=== PATIENT | male | born 1950 | race Two or more races ===

== ENCOUNTER 2020-05-29 21:04 | Emergency (ER) | payer OTHER ==
[~2020-05-29] VITALS: Ht 180.3 cm; Wt 90.7 kg
--- NOTE | 2020-05-29 21:15 | NUR ---
PATIENT ARRIVED TO ER C/O WEAKNESS, NO FALLS AND HEADACHES S/P 2ND COVID VACCINE 15 DAYS AGO. PATIENT A/O X4 ON ARRIVAL.
--- NOTE | 2020-05-29 21:40 | NUR ---
PATIENT TAKEN VIA STRETCHER TO CT.
[2020-05-29 21:41] LABS: BASOPHILS # (AUTO) 0.1 /CMM (0.0-0.2); BASOPHILS % (AUTO) 0.6 % (0.0-2.0); EOSINOPHILS % (AUTO) 0.7 % (0.0-6.0); HEMATOCRIT 44 % (39-51); HEMOGLOBIN 14.6 g/dL (13.5-17.5); LYMPHOCYTES # (AUTO) 1.3 /CMM (0.8-4.8); LYMPHOCYTES % (AUTO) 14.2 % (20.0-44.0); MEAN CORPUSCULAR HGB CONC 33 g/dl (31.0-36.0); MEAN CORPUSCULAR VOLUME 91 fL (80-96); NEUTROPHILS # (AUTO) 6.6 /CMM (1.8-8.9); NEUTROPHILS % (AUTO) 73.5 % (43.0-81.0); PLATELET COUNT (AUTO) 208 /CMM (150-450)
--- NOTE | 2020-05-29 21:46 | NUR ---
URINE SAMPLE COLLECTED AND SENT TO LAB.
[2020-05-29 21:50] LABS: CALCIUM, SERUM 9.1 mg/dL (8.5-10.1); CARBON DIOXIDE 23 mmol/L (21-32); CHLORIDE 102 mmol/L (98-107); GLUCOSE 109 mg/dL (74-106); POTASSIUM 3.9 mmol/L (3.5-5.1); SODIUM SERUM 140 mmol/L (136-145); UREA NITROGEN, BLOOD 22 mg/dL (7-18)
[2020-05-29 21:53] LABS: BILIRUBIN,URINE SMALL (NEGATIVE); COLOR,URINE YELLOW (YELLOW); LEUKOCYTE ESTERASE ,URINE Negative (NEGATIVE); NITRITE, URINE Negative (NEGATIVE); PH,URINE 5.5 (5.0-8.0); PROTEIN,URINE 30 mg/dl (NEGATIVE); UGLUCOSE Negative (NEGATIVE); UROBILINOGEN,URINE 0.2 EU/dL (0.2)
[2020-05-29 21:58] LABS: ALANINE AMINOTRANSFERASE 38 U/L (12-78); ALBUMIN 3.5 g/dL (3.4-5.0); ALKALINE PHOSPHATASE 78 U/L (46-116); ASPARTATE AMINOTRANSFERASE 21 U/L (15-37); BILIRUBIN,DIRECT 0.1 mg/dL (0.0-0.2); BILIRUBIN,TOTAL 0.5 mg/dL (0.2-1.0); TOTAL PROTEIN, SERUM 7.5 g/dL (6.4-8.2)
[2020-05-29 22:02] LABS: B-TYPE NATRIURETIC PEPTIDE 112 PG/ML (0-125)
--- NOTE | 2020-05-29 22:18 | NUR ---
COVID SWABBED, SENT TO LAB
[2020-05-29 22:24] LABS: CREATINE KINASE, TOTAL 71 U/L (39-308)
[2020-05-29 22:28] LABS: BACTERIA,URINE Rare /HPF (None Seen); SQUAMOUS EPITHELIAL CELL,UR Few /HPF (None Seen); WBC,URINE NONE SEEN /HPF (0-3)
--- NOTE | 2020-05-29 23:13 | NUR ---
MD NOTIFIED PATIENT'S HIGH BLOOD PRESSURE. 193/106 HR AT 67. VERBAL ORDER OF LABETALOL 10MG IV.
[2020-05-29] MEDS ORDERED: LABETALOL HCL IV 100MG VIAL ONE (23:15)
--- NOTE | 2020-05-29 23:20 | NUR ---
PT MEDICATED ORDERED.
[2020-05-29] MEDS ORDERED: LABETALOL 20 MG/4 ML VIAL IV ONE (23:30)
--- NOTE | 2020-05-29 23:53 | NUR ---
FAX: [phone] SPOKE TO [facility] #
--- NOTE | 2020-05-29 23:57 | NUR ---
MD NOTIFIED PATIENT C/O FRONTAL HEADACHE AND IS REQUESTING PAIN MEDS. LAST BP 150S/90S. MD TO PLACE ORDERS.
[2020-05-29] MEDS ORDERED: MORPHINE SULFATE INJ 4 MG/ML DISP.SYRIN ONE (23:59)
[2020-05-30] MEDS ORDERED: ONDANSETRON HCL/PF - ER 4 MG/2 ML VIAL IV ONE
[2020-05-30] MEDS ORDERED: MORPHINE SULFATE INJ 10 MG/ML DISP.SYRIN IV ONE
[2020-05-30] MEDS ORDERED: ONDANSETRON HCL/PF 4 MG/2 ML VIAL ONE (00:01)
--- NOTE | 2020-05-30 00:21 | NUR ---
ROOM NUMBER [id number] NUMBER FOR REPORT [phone]
--- NOTE | 2020-05-30 00:29 | NUR ---
DR VELEZ IS ACCEPTING . 0130 ETA VIA [facility].
[2020-05-30 00:51] VITALS: BP 146/79
--- NOTE | 2020-05-30 01:20 | NUR ---
REPORT GIVEN TO MAYRA PLAZA AT [facility] FOR NICOLASA.
--- NOTE | 2020-05-30 01:37 | NUR ---
REPORT GIVEN TO EMT FOR TRANSPORT AT THIS TIME.
== END 2020-05-30 01:46 | disposition short-term general hospital (02) ==
LOC: ER 21:07
DX: I62.00 Nontraumatic subdural hemorrhage, unspecified (principal); R53.1 Weakness; E11.9 Type 2 diabetes mellitus without complications; Z95.2 Presence of prosthetic heart valve; R94.31 Abnormal electrocardiogram [ECG] [EKG]; Z20.822 Contact with and (suspected) exposure to COVID-19; R03.0 Elevated blood-pressure reading, without diagnosis of hypertension; R91.8 Other nonspecific abnormal finding of lung field
CPT/HCPCS: 36415; 70450; 71045; 80048; 80076; 81001; 82550; 82962; 83880; 84484; 85025; 87426; 93005; 96374 ×2; 96375; 99291; J2270; J2405; J3490; C9803

== ENCOUNTER 2022-01-10 10:50 | Inpatient (IN) | payer MEDICARE, OTHER ==
[~2022-01-10] VITALS: Ht 177.8 cm; Wt 77.6 kg
--- NOTE | 2022-01-10 10:54 | NUR ---
CODE STROKE CALLED
--- NOTE | 2022-01-10 10:56 | NUR ---
PT TO CT VIA ACLS PROTOCALS.
--- NOTE | 2022-01-10 11:00 | NUR ---
PHLEB AT BEDSIDE FPR BLOOD DRAW.
--- NOTE | 2022-01-10 11:01 | NUR ---
CALLED TE[facility] MED [facility] [phone] WILL BE TEO RUCKER.
[2022-01-10 11:07] LABS: BASOPHILS % (AUTO) 0.2 % (0.0-2.0); EOSINOPHILS % (AUTO) 0.6 % (0.0-6.0); HEMATOCRIT 41 % (39-51); HEMOGLOBIN 13.5 g/dL (13.5-17.5); LYMPHOCYTES # (AUTO) 0.9 K/uL (0.8-4.8); LYMPHOCYTES % (AUTO) 8.3 % (20.0-44.0); MEAN CORPUSCULAR HGB CONC 33 g/dl (31.0-36.0); MEAN CORPUSCULAR VOLUME 88 fL (80-96); MONOCYTES # (AUTO) 0.6 K/uL (0.1-1.30); MONOCYTES % (AUTO) 5.8 % (2.0-12.0); NEUTROPHILS # (AUTO) 8.9 K/uL (1.8-8.9); NEUTROPHILS % (AUTO) 85.1 % (43.0-81.0); PLATELET COUNT (AUTO) 174 K/uL (150-450); RED BLOOD CELL COUNT(AUTO) 4.67 MIL/uL (4.5-6.0); WHITE BLOOD COUNT (AUTO) 10.4 K/uL (4.3-11.0)
[2022-01-10] MEDS ORDERED: CT SWABBABLE VALVE TRANS SET 1 EA INFUS.SET MC ONE (11:08)
[2022-01-10] MEDS ORDERED: IOHEXOL-350 100 ML VIAL IV ONE (11:08)
[2022-01-10] MEDS ORDERED: IV NS 0.9% 250 ML IV ONE (11:08)
[2022-01-10 11:21] LABS: CALCIUM, SERUM 8.7 mg/dL (8.5-10.1); CARBON DIOXIDE 28 mmol/L (21-32); CHLORIDE 103 mmol/L (98-107); GLUCOSE 178 mg/dL (74-106); POTASSIUM 4.3 mmol/L (3.5-5.1); SODIUM SERUM 136 mmol/L (136-145); UREA NITROGEN, BLOOD 25 mg/dL (7-18)
[2022-01-10 11:22] LABS: ALANINE AMINOTRANSFERASE 24 U/L (12-78); ALBUMIN 3.5 g/dL (3.4-5.0); ALKALINE PHOSPHATASE 69 U/L (46-116); ASPARTATE AMINOTRANSFERASE 18 U/L (15-37); BILIRUBIN,DIRECT 0.1 mg/dL (0.0-0.2); BILIRUBIN,TOTAL 0.4 mg/dL (0.2-1.0); TOTAL PROTEIN, SERUM 6.8 g/dL (6.4-8.2)
[2022-01-10] MEDS ORDERED: AMLO-213 PO (11:23)
[2022-01-10] MEDS ORDERED: ROSU40TA23 PO (11:23)
[2022-01-10] MEDS ORDERED: LOSA25TA27 PO (11:23)
[2022-01-10] MEDS ORDERED: LEVE100023 PO (11:23)
[2022-01-10] MEDS ORDERED: TAMS-12 PO (11:23)
[2022-01-10] MEDS ORDERED: DULO30CA52 PO (11:23)
[2022-01-10] MEDS ORDERED: SITA1TAB6 PO (11:23)
[2022-01-10] MEDS ORDERED: SPIR25TA6 PO (11:23)
[2022-01-10] MEDS ORDERED: FAMO20TA8 PO (11:23)
[2022-01-10] MEDS ORDERED: CARV12.52 PO (11:23)
[2022-01-10] MEDS ORDERED: LACO200T2 PO (11:23)
[2022-01-10] MEDS ORDERED: BACL5TAB PO (11:23)
--- NOTE | 2022-01-10 11:25 | NUR ---
PT RETURNED FROM RADIOLOGY
--- NOTE | 2022-01-10 11:52 | NUR ---
COVID SWAB COLLECTED AND SENT TO LAB
--- NOTE | 2022-01-10 14:48 | NUR ---
GOT BED 322-1
[2022-01-10] MEDS ORDERED: INSULIN REGULAR, HUMAN 100 UNIT/ML 3 ML VIAL SQ PRN (15:00)
[2022-01-10] MEDS ORDERED: DEXTROSE 50%-WATER 50 ML DISP.SYRIN IV PRN ×2 (15:00→15:30)
[2022-01-10] MEDS ORDERED: ENOXAPARIN SODIUM 40 MG/0.4 ML DISP.SYRIN SQ SCH ×2 (15:00→15:30)
--- NOTE | 2022-01-10 15:15 | NUR ---
pt transferred to 322-1 via mary kate kate protocol. warm handoff given to MELA Escudero
[2022-01-10] MEDS ORDERED: HOME MED MISCELLANEOUS XX SCH (15:30)
--- NOTE | 2022-01-10 16:54 | NUR ---
SS consult received for code stroke. SW will follow up at a later time.
[2022-01-10] MEDS ORDERED: CARVEDILOL 12.5 MG TABLET PO SCH (17:00)
[2022-01-10] MEDS ORDERED: LEVETIRACETAM (250 MG) 250 MG TABLET PO SCH (17:00)
[2022-01-10] MEDS: CARVEDILOL 12.5 MG TABLET PO SCH (17:25)
[2022-01-10] MEDS: LEVETIRACETAM (250 MG) 250 MG TABLET PO SCH (17:26)
[2022-01-10] MEDS ORDERED: BLOOD SUGAR DIAGNOSTIC 1 EACH STRIP IN SCH (17:30)
[2022-01-10] MEDS: BLOOD SUGAR DIAGNOSTIC 1 EACH STRIP IN SCH ×2 (17:36→21:56)
--- NOTE | 2022-01-10 19:45 | NUR ---
INSIDE SALES TRAINER NOTE RECEIVED PATIENT IN BED; AWAKE, ALERT AND ORIENTED X1. BREATHING EVEN AND NONLABORED. ON ROOM AIR; TOLERATING WELL. NOT IN ANY FORM OF RESPIRATORY DISTRESS. NO C/O PAIN OR DISCOMFORT AT THIS TIME. ON TELEMETRY MONITORING WITH READING OF SR WITH 1ST DEGREE AV BLOCK AND PVC. NEEDS ANTICIPATED. WITH IV ACCESS ON LEFT AC 18g; PATENT, INTACT AND SALINE LOCKED. SAFETY MEASURES IMPLEMENTED: SIDE RAILS UP X 2, BED IN LOWEST LOCKED POSITION, CALL LIGHT AND TABLE WITHIN REACH. WILL CONTINUE TO MONITOR.
[2022-01-10 20:00] VITALS: BP 121/76
[2022-01-10] MEDS ORDERED: LACOSAMIDE 50 MG TABLET PO SCH (21:00)
[2022-01-10 21:12] LABS: BILIRUBIN,URINE NEGATIVE (NEGATIVE); COLOR,URINE AMBER (YELLOW); LEUKOCYTE ESTERASE ,URINE NEGATIVE (NEGATIVE); NITRITE, URINE NEGATIVE (NEGATIVE); PROTEIN,URINE NEGATIVE (NEGATIVE); UGLUCOSE NEGATIVE (NEGATIVE); UROBILINOGEN,URINE 0.2 EU/dL (0.2)
[2022-01-10 21:22] LABS: BACTERIA,URINE Few /HPF (None Seen); RBC,URINE TOO NUMEROUS TO COUN /HPF (0-2); SQUAMOUS EPITHELIAL CELL,UR Few /HPF (None Seen); WBC,URINE 0-2 /HPF (0-3)
[2022-01-10] MEDS: LACOSAMIDE 50 MG TABLET PO SCH (21:44)
[2022-01-10] MEDS: ATORVASTATIN 40 MG TABLET PO SCH (21:45)
--- NOTE | 2022-01-10 21:49 | NUR ---
RN NOTE BLOOD SUGAR CHECKED - 97 MG/DL. NO INSULIN COVERAGE GIVEN PER SLIDING SCALE. OFFERED APPLE JUICE AND BRENT CRACKERS. WILL CONTINUE TO MONITOR.
[2022-01-10 23:56] VITALS: BP 141/84
[2022-01-11] VITALS: BP 141/84
[2022-01-11 03:40] VITALS: BP 150/90
[2022-01-11 04:00] VITALS: BP 150/90
--- NOTE | 2022-01-11 05:26 | NUR ---
RN NOTE BLOOD SUGAR CHECKED - 108 MG/DL. NO INSULIN COVERAGE GIVEN PER SLIDING SCALE. PT KEPT COMFORTABLE IN BED. WILL CONTINUE TO MONITOR.
--- NOTE | 2022-01-11 07:00 | NUR ---
ATHLETIC EQUIPMENT MANAGER NOTE PATIENT IN BED; AWAKE, A/O X1. RESPIRATION EQUAL AND UNLABORED. STABLE ON ROOM AIR. IN NO ACUTE DISTRESS NOTED. NO S/S OF ANY PAIN OR DISCOMFORT NOTED AT THIS TIME. ON TELE MONITORING WITH READING OF SR WITH 1ST DEGREE AV BLOCK. ALL NEEDS ATTENDED. ALL DUE MEDS GIVEN ORDERED. WITH IV ACCESS ON LEFT AC 18g; PATENT, INTACT AND SALINE LOCKED. SAFETY MEASURES MAINTAINED: SIDE RAILS UP X 2, BED IN LOWEST LOCKED POSITION, CALL LIGHT AND TABLE WITHIN REACH. ENDORSED TO AYAAN PLAZA FOR NICOLASA.
--- NOTE | 2022-01-11 07:30 | NUR ---
ROAD PASSENGER FIRER OPENING NOTE RECEIVED PT AWAKE AND RESTING IN BED. PT IS A/O X1, EXPRESSIVE APHASIA. REORIENTED PT NEEDED. PT ON RA, TOLERATING WELL. NO SOB NOTED. NOT IN ANY SIGN OF RESPIRATORY DISTRESS. ON TELE CABIN FURNISHINGS INSTALLER WITH CURRENT READING OF SINUS RHYTHM WITH FIRST DEGREE HEART BLOCK, HR 70. NO C/O OF CARDIAC DISTRESS VOICED OUT NOTED AT THIS TIME. DR. MADSEN AWARE OF CARDIAC READING. IV ACCESS LAC G#18 SALINE LOCK, INTACT, AND PATENT. SAFETY MEASURES IN PLACE: BED IN LOWEST AND LOCKED POSITION, BED ALARM ON, SIDE RAILS UPX2, AND CALL LIGHT WITHIN REACH. WILL CONTINUE TO MONITOR PT.
[2022-01-11] MEDS: BLOOD SUGAR DIAGNOSTIC 1 EACH STRIP IN SCH ×4 (08:11→22:00)
--- NOTE | 2022-01-11 08:43 | NUR ---
WOUND CARE CONSULT: RECEIVED CONSULT FOR PSORIASIS. PT DENIES NEED FOR WOUND CONSULT AND STATES IS BEING TREATED FOR PSORIASIS BY HIS OWN DOCTOR. WILL SEE PRN.
[2022-01-11] MEDS: ASPIRIN 81 MG TAB.CHEW PO SCH (08:44)
[2022-01-11] MEDS: LINAGLIPTIN 5 MG TABLET PO SCH (08:44)
[2022-01-11] MEDS: LEVETIRACETAM (250 MG) 250 MG TABLET PO SCH ×2 (08:44→16:53)
[2022-01-11] MEDS: DULOXETINE HCL 30 MG CAPSULE.DR PO SCH (08:44)
[2022-01-11] MEDS: LOSARTAN POTASSIUM 25 MG TABLET PO SCH (08:45)
[2022-01-11] MEDS: AMLODIPINE BESYLATE 10 MG TABLET PO SCH (08:45)
[2022-01-11] MEDS: LACOSAMIDE 50 MG TABLET PO SCH ×2 (08:46→21:48)
[2022-01-11] MEDS: CARVEDILOL 12.5 MG TABLET PO SCH ×2 (08:46→16:54)
[2022-01-11] MEDS ORDERED: ASPIRIN EC 325 MG TABLET.DR PO SCH ×2 (09:00)
[2022-01-11] MEDS ORDERED: AMLODIPINE BESYLATE 10 MG TABLET PO SCH (09:00)
[2022-01-11] MEDS ORDERED: DULOXETINE HCL 30 MG CAPSULE.DR PO SCH (09:00)
[2022-01-11] MEDS ORDERED: LOSARTAN POTASSIUM 25 MG TABLET PO SCH (09:00)
[2022-01-11 09:23] LABS: CHOLESTEROL 123 mg/dL (<200); HDL CHOLESTEROL 45 mg/dL (40-60); LDL 66 mg/dL (0-99); TRIGLYCERIDES 65 mg/dL (30-150)
--- NOTE | 2022-01-11 11:00 | NUR ---
Inspector Rough Castings Consult SW received a consult for a stroke protocol. Pt. is a 71 y.o. male who was suffered a stroke per EMR. Pt. was alert and oriented x4. SW met with pt. at bedside. Pt. appears unkept. Pt. made normal eye contact and remained calm and cooperative during assessment. Pt. had a cheerful mood and congruent affect. Pt. reports that he is independent with ADLs and is ambulatory without assistance. Pt. stated he lives alone. Pt. stated he is receiving SSI and [employer]. Pt. did not report a hx of substance abuse, no hx of psychiatric dx. Pt. reports no visual or auditory hallucination. SW assessed for suicidal and homicidal ideation in which pt. denied plan, mean, or intent. Pt. reported he had hx of seizure in which the last one was 5 months ago. DC plan: When asked about pt.s plans after being discharged, pt. reports he will be possibly going to his girlfriends house (Elodia Stoll). Pt. also provided another automobiles salesperson, Yesenia Candy ([phone]) who is his friend. Pt. confirmed his home address of [address] [place] [id number]. CARLOS provided pt. with post stroke empowerment resources in which pt. accepted them. CARLOS administered the PHQ9 post stroke depression scale, pt. scored a 2. CARLOS observed that pt. appeared to have difficulty with communicating his thoughts, possibly secondary to stroke therefore, theres no need for a psych consult at this time. CARLOS relayed information to MELA Daniel.
[2022-01-11] MEDS: INSULIN REGULAR, HUMAN 100 UNIT/ML 3 ML VIAL SQ PRN ×2 (12:25→16:55)
--- NOTE | 2022-01-11 19:30 | NUR ---
CLINICAL STAFF RN CLOSING NOTE PT AWAKE AND RESTING IN BED. PT IS A/O X2, EXPRESSIVE APHASIA. REORIENTED PT NEEDED. PT ON RA, TOLERATING WELL. NO SOB NOTED. NOT IN ANY SIGN OF RESPIRATORY DISTRESS. ON TELE MEDICAL COLLECTIONS SPECIALIST WITH CURRENT READING OF SINUS RHYTHM WITH FIRST DEGREE HEART BLOCK, HR 69. NO C/O OF CARDIAC DISTRESS VOICED OUT NOTED AT THIS TIME. IV ACCESS LAC G#18 SALINE LOCK, INTACT, AND PATENT. ALL NEEDS ATTENDED. KEPT CLEAN AND COMFORTABLE. SAFETY MEASURES IN PLACE: BED IN LOWEST AND LOCKED POSITION, BED ALARM ON, SIDE RAILS UPX2, AND CALL LIGHT WITHIN REACH. ENDORSED TO SLURRY MAN NURSE FOR NICOLASA.
--- NOTE | 2022-01-11 19:47 | NUR ---
VASCULAR RADIOLOGIST OPENING NOTES: RECEIVED PATIENT AWAKE IN BED, BED IN LOW POSITION, CALL LIGHTS WITHIN REACH, NO COMPLAIN OF PAIN AND DISCOMFORT AT THIS TIME, ON ROOM AIR SATURATING WELL, PATIENT IS A/OX2-3 AMBULATORY WITH ASSIST, ON TELE MONITOR- SR64 WITH FIRST DEGREE AV BLOCK NO SYMPTOMS WAS OBSERVED, PATIENT KEPT CLEAN AND DRY ALL NEEDS MET WILL CONTINUE TO MONITOR.
[2022-01-11 20:00] VITALS: BP 108/71
[2022-01-11] MEDS: ATORVASTATIN 40 MG TABLET PO SCH (21:47)
--- NOTE | 2022-01-11 22:12 | NUR ---
RN NOTES: BLOOD SUGAR-116 NO INSULIN GIVEN PER SLIDING SCALE, OUT OF PARAMETER
[2022-01-12] VITALS (7 sets, daily range): BP systolic 113–121; BP diastolic 70–81
[2022-01-12 06:45] LABS: CALCIUM, SERUM 8.7 mg/dL (8.5-10.1); CREATININE 0.8 mg/dL (0.6-1.3); POTASSIUM 3.4 mmol/L (3.5-5.1)
--- NOTE | 2022-01-12 06:53 | NUR ---
TELEVISION REPAIRMAN CLOSING NOTES: PATIENT SLEEP IN BED COMFORTABLY, AROUSABLE TO VERBAL STIMULI, BED IN LOW POSITION CALL LIGHTS WITHIN REACH, NO COMPLAIN OF PAIN AND DISCOMFORT AT THIS TIME ON ROOM AIR SATURATING WELL, PATIENT ON TELE MONITOR- SR-[address] DEPRESSION AND BBB NO SYMPTOMS WAS OBSERVED, PATIENT KEPT CLEAN AND DRY ALL NEEDS MET ENDORSE TO INCOMING SHIFT.
--- NOTE | 2022-01-12 07:20 | NUR ---
PAINT DEPARTMENT SUPERVISOR OPENING NOTES: RECEIVED PT IN BED ASLEEP EASILY AWAKEN WITH STIMULI, A/O X 2 AND ABLE TO VERBALIZED NEEDS. NO SOB OR CARDIAC DISTRESS NOTED. PATIENT ON REGIONAL OTR COMPANY DRIVER WITH CURRENT READING SR @64 BPM FIRST AV BLOCK WITH BBB. DENIES ANY PAIN AT THIS TIME. IV ACCESS ON LAC G 18 PATENT, INTACT AND SALINE LOCKED. SAFETY PRECAUTION MAINTAINED: BED LOCKED AND IN LOWEST POSITION, SIDE RAILS UP X 2. CALL LIGHT IN EASY REACH FOR HELP. WILL MONITOR PT ACCORDINGLY.
[2022-01-12] MEDS: BLOOD SUGAR DIAGNOSTIC 1 EACH STRIP IN SCH ×4 (07:33→22:00)
[2022-01-12] MEDS: LEVETIRACETAM (250 MG) 250 MG TABLET PO SCH ×2 (09:09→17:14)
[2022-01-12] MEDS: LACOSAMIDE 50 MG TABLET PO SCH ×2 (09:09→21:28)
[2022-01-12] MEDS: ASPIRIN 81 MG TAB.CHEW PO SCH (09:10)
[2022-01-12] MEDS: METFORMIN 500 MG TABLET PO SCH ×2 (09:10→17:14)
[2022-01-12] MEDS: LINAGLIPTIN 5 MG TABLET PO SCH (09:10)
[2022-01-12] MEDS: DULOXETINE HCL 30 MG CAPSULE.DR PO SCH (09:10)
[2022-01-12] MEDS: LOSARTAN POTASSIUM 25 MG TABLET PO SCH (09:11)
[2022-01-12] MEDS: AMLODIPINE BESYLATE 10 MG TABLET PO SCH (09:11)
[2022-01-12] MEDS: CARVEDILOL 12.5 MG TABLET PO SCH ×2 (09:11→17:15)
[2022-01-12] MEDS ORDERED: POTASSIUM CHLORIDE 20 MEQ TAB.PRT.SR PO ONE (11:00)
[2022-01-12] MEDS: INSULIN REGULAR, HUMAN 100 UNIT/ML 3 ML VIAL SQ PRN (13:01)
--- NOTE | 2022-01-12 18:46 | NUR ---
IT SECURITY SPECIALIST CLOSING NOTES: PT IN BED, AWAKE. A/O X 4, ABLE TO VERBALIZED NEEDS. ABLE TO SWALLOW WITHOUT ANY PROBLEM. NO EPISODES OF SEIZURE NOTED ALL THROUGH OUT MORNING SHIFT. NO SOB OR CARDIAC DISTRESS NOTED. ON PRODUCE CLERK WITH CURRENT READING OF :SINUS RHYTHM 73 BPM. IV ACCESS ON LAC GAUGE 18, PATENT, INTACT AND SALINE LOCKED. PATIENT AMBULATORY AND STABLE. DENIES ANY PAIN AT THIS TIME. KEPT RESTED AND COMFORTABLE. SAFETY PRECAUTION MAINTAINED: BED LOCKED AND IN LOWEST POSITION, SIDE REAILS UP X 2, BED ALARM ON. CALL LIGHT IN EASY REACH FOR HELP. ENDORSED TO NOC SHIFT FOR NICOLASA.
--- NOTE | 2022-01-12 19:55 | NUR ---
THEATER TEACHER OPENING NOTES: RECEIVED PATIENT AWAKE IN BED, BED IN LOW POSITION CALL LIGHTS WITHIN REACH, NO COMPLAIN OF PAIN AND DISCOMFORT AT THIS TIME, ON ROOM AIR SATURATING WELL, NO SOB WAS OBSERVED, PATIENT WITH IV LINE AT LAC#18SL, ON TELE MONITOR- SR-75 WITH 5TH DEGREE AV BLOCK, NO SYMPTOMS WAS OBSERVED, PATIENT KEPT CLEAN AND DRY ALL NEEDS MET WILL CONTINUE TO MONITOR.
[2022-01-12] MEDS: ATORVASTATIN 40 MG TABLET PO SCH (21:28)
--- NOTE | 2022-01-12 22:21 | NUR ---
RN NOTES; BLOOD SUGAR-111- NO INSULIN GIVEN /OUT OF PARAMETER
[2022-01-13] VITALS: BP 134/78
[2022-01-13 04:00] VITALS: BP 126/78
[2022-01-13 06:33] LABS: CALCIUM, SERUM 8.7 mg/dL (8.5-10.1); CREATININE 0.8 mg/dL (0.6-1.3); POTASSIUM 3.8 mmol/L (3.5-5.1)
[2022-01-13] MEDS: INSULIN REGULAR, HUMAN 100 UNIT/ML 3 ML VIAL SQ PRN (06:36)
--- NOTE | 2022-01-13 06:40 | NUR ---
RN NOTES: BLOOD SUGAR-132/ 2 UNITS INSULIN GIVEN PER SLIDING SCALE
--- NOTE | 2022-01-13 06:52 | NUR ---
BUSINESS SOLUTIONS ARCHITECT CLOSING NOTES: PATIENT SLEE P IN BED COMFORTABLY, AROUSABLE TO VERBAL STIMULI, BED IN LOW POSITION, CALL LIGHTS WITHIN REACH, NO COMPLAIN OF PAIN AND DISCOMFORT AT THIS TIME, ON ROOM AIR SATURATING WELL, NO SOB WAS OBSERVED, PATIENT IS A/0X2-3 AMBULATORY WITH ASSISTANCE, NO SEIZURE EPISODE WAS OBSERVED, ON TELE MONITOR- SR-66 WITH 5 DEG. AV BLOCK WITH PVC NO SYMPTOMS WAS OBSERVED,KEPT CLEAN AND DRY ALL NEEDS MET ENDORSE TO INCOMING SHIFT.
[2022-01-13] MEDS: BLOOD SUGAR DIAGNOSTIC 1 EACH STRIP IN SCH ×4 (07:01→22:00)
--- NOTE | 2022-01-13 07:32 | NUR ---
RN OPENING NOTE PATIENT IS SLEEPING BUT EASILY BEING AROUSED. AO X 3. PATIENT HAS SOME DEGREE OF APHASIA. PATIENT IS ON RA, NO S/S OF DISTRESS. PT IS CALM, NO SIGNS OF HAVING PAIN. IV ACCESS @ LAC. IV IS PATENT. VS Q 4 HOURS. CALL LIGHT WITHIN REACH, SIDE RAILS UP X 2, BED IS IN LOWEST POSITION. BED ALARM IS ON.
[2022-01-13] MEDS: LINAGLIPTIN 5 MG TABLET PO SCH (08:48)
[2022-01-13] MEDS: LACOSAMIDE 50 MG TABLET PO SCH ×2 (08:52→21:41)
[2022-01-13] MEDS: METFORMIN 500 MG TABLET PO SCH ×2 (08:53→17:09)
[2022-01-13] MEDS: ASPIRIN 81 MG TAB.CHEW PO SCH (08:53)
[2022-01-13] MEDS: LOSARTAN POTASSIUM 25 MG TABLET PO SCH (08:54)
[2022-01-13] MEDS: LEVETIRACETAM (250 MG) 250 MG TABLET PO SCH ×2 (08:54→17:08)
[2022-01-13] MEDS: DULOXETINE HCL 30 MG CAPSULE.DR PO SCH (08:54)
[2022-01-13] MEDS: AMLODIPINE BESYLATE 10 MG TABLET PO SCH (08:55)
[2022-01-13] MEDS: CARVEDILOL 12.5 MG TABLET PO SCH ×2 (08:55→17:09)
--- NOTE | 2022-01-13 10:20 | NUR ---
MS RN NOTE PATENT SEEN BY HOSPITALIST AIRAM
--- NOTE | 2022-01-13 11:00 | NUR ---
MS RN NOTE PATIENT WAS SEEN BY KALI ALEGRIA AND KALI WEST.
[2022-01-13] MEDS ORDERED: JANUMET XX SCH (15:45)
[2022-01-13 16:00] VITALS: BP 121/78
--- NOTE | 2022-01-13 18:11 | NUR ---
MS RN CLOSING NOTE PATIENT IN BED ALERT AND ORIENTED X 4. PATIENT IS ABLE TO MAKE A CONVERSATION WITH SOME DELAYED VERBALLY RESPONSE. PATIENT IS ON ROOM AIR; NO SIGNS OF RESPIRATORY DISTRESS. NO COMPLAIN OF PAIN OR DISCOMFORT. PATIENT ABLE TO MAKE NEEDS KNOWN. SAFETY MEASURES ENSURED WITH BED IN LOWEST LOCKED POSITION, SIDERAILS RAISED X2, BED ALARM ON AND CALL LIGHT WITHIN REACH AT ALL TIMES. WILL ENDORSE TO NEXT SHIFT FOR CONTINUITY OF CARE.
--- NOTE | 2022-01-13 19:52 | NUR ---
MS RN OPENING NOTES: RECEIVED PATIENT SLEEP IN BED COMFORTABLY, AROUSABLE TO VERBAL STIMULI, BED IN LOW POSITION CALL LIGHTS WITHIN REACH, NO COMPLAIN OF PAIN AND DISCOMFORT AT THIS TIME, ON ROOM AIR SATURATING WELL, A/OX3-4 AMBULATORY WITH SUPERVISION, IV LINE AT LAC#18 SL, PATIENT KEPT CLEAN AND DRY ALL NEEDS MET WILL CONTINUE TO MONITOR
[2022-01-13 20:00] VITALS: BP 119/79
[2022-01-13] MEDS: ATORVASTATIN 40 MG TABLET PO SCH (21:41)
--- NOTE | 2022-01-13 22:39 | NUR ---
RN NOTES: BLOOD SUGAR- 101/ NO INSULIN GIVEN PER SLIDING SCALE/ OUT OF PARAMETER
--- NOTE | 2022-01-14 06:22 | NUR ---
RN NOTES: BLOOD SUGAR-110 NO INSULIN GIVEN PER SLIDING SCALE
--- NOTE | 2022-01-14 06:23 | NUR ---
AWARD CLERK CLOSING NOTES: PATIENT SLEEP IN BED COMFORTABLY, АЛЕКСАНДР IN LOW POSITION CALL LIGHTS WITHIN REACH, NO COMPLAIN OF PAIN AND DISCOMFORT AT THIS TIME, ON ROOM AIR SATURATING WELL, PATIENT IS A/OX2-3 ABLE TO MAKE NEEDS KNOW,WEEKLY SKIN ASSESSMENT DONE AND DOCUMENT PATIENT KEPT CLEAN AND DRY ALL NEEDS MET ENDORSE TO INCOMING SHIFT.
[2022-01-14] MEDS: BLOOD SUGAR DIAGNOSTIC 1 EACH STRIP IN SCH ×2 (07:49→12:04)
[2022-01-14 08:00] VITALS: BP 129/75
--- NOTE | 2022-01-14 08:00 | NUR ---
MS RN OPENING NOTES: PATIENT IS SLEEPING IN BED CALMLY WITH ROOM AIR. NO COMPLAIN OF CHEST PAIN NOR DISCOMFORT. PATIENT IS EASILY AROUSED BY VERBAL STIMULI AND TOUCH. BED IN LOWEST POSITION, CALL LIGHTS WITHIN REACH. A/OX3-4 AMBULATORY WITH SUPERVISION, IV LINE AT LAC#18 SL. PATIENT KEPT CLEAN AND DRY, ALL NEEDS MET WILL CONTINUE TO MONITOR
[2022-01-14] MEDS: ASPIRIN 81 MG TAB.CHEW PO SCH (10:06)
[2022-01-14] MEDS: METFORMIN 500 MG TABLET PO SCH ×2 (10:06→16:16)
[2022-01-14] MEDS: AMLODIPINE BESYLATE 10 MG TABLET PO SCH (10:07)
[2022-01-14] MEDS: DULOXETINE HCL 30 MG CAPSULE.DR PO SCH (10:07)
[2022-01-14] MEDS: LEVETIRACETAM (250 MG) 250 MG TABLET PO SCH ×2 (10:07→16:17)
[2022-01-14] MEDS: LOSARTAN POTASSIUM 25 MG TABLET PO SCH (10:07)
[2022-01-14] MEDS: CARVEDILOL 12.5 MG TABLET PO SCH ×2 (10:08→16:16)
[2022-01-14] MEDS: LACOSAMIDE 50 MG TABLET PO SCH (10:16)
[2022-01-14] MEDS: LINAGLIPTIN 5 MG TABLET PO SCH (10:16)
[2022-01-14] MEDS ORDERED: ATOR40TA PO (12:23)
[2022-01-14] MEDS ORDERED: ASPI-1169 PO (12:23)
--- NOTE | 2022-01-14 14:25 | NUR ---
MS RN NOTES PER MD ORDER, PATIENT IS IN MEDICAL STABLE CONDITION AND BEING DISCHARGED. PATIENT WILL BE PICKED UP BY HIS GIRLFRIEND (POA). PATIENT RECEIVED HOSPITAL DISCHARGE INSTRUCTION. HOME MEDICATION LIST AND PATIENT PREFERRED PHARMACY INFORMATION HAVE BEEN PROVIDED TO THE PATIENT. PATIENT WILL BE DISCHARGED HOME , FOLLOWED BY HOME HEALTH SERVICES AND PCP APPOINTMENT.
[2022-01-14 16:16] VITALS: BP 117/68
--- NOTE | 2022-01-14 16:35 | NUR ---
PATIENT IS DISCHARGED AND LEFT WITH HIS GIRLFRIEND IN THEIR PRIVATE CAR. ID BANDS ARE REMOVED. IV ACCESS HAS BEEN REMOVED, COVERED WITH 2X2 DRY GAUZE AND SECURED BY TAPES
== END 2022-01-14 16:56 | disposition home or self-care (01) | DRG 66 ==
LOC: ER 11:00 → TELE 15:32 → MED 01-13 10:14
PROVIDERS: ADMIT Nurse Practitioner Acute Care; ATTEND Nurse Practitioner Acute Care
DX: I63.9 Cerebral infarction, unspecified (principal); G40.909 Epilepsy, unspecified, not intractable, without status epilepticus; R29.703 NIHSS score 3; Z20.822 Contact with and (suspected) exposure to COVID-19; I10 Essential (primary) hypertension; Z86.73 Personal history of transient ischemic attack (TIA), and cerebral infarction without residual deficits; E11.9 Type 2 diabetes mellitus without complications; Z95.2 Presence of prosthetic heart valve; Z79.84 Long term (current) use of oral hypoglycemic drugs; Z79.899 Other long term (current) drug therapy; R47.01 Aphasia; R27.8 Other lack of coordination; R47.1 Dysarthria and anarthria; L40.9 Psoriasis, unspecified; N40.0 Benign prostatic hyperplasia without lower urinary tract symptoms; Z91.81 History of falling; E78.5 Hyperlipidemia, unspecified; R79.89 Other specified abnormal findings of blood chemistry; G93.89 Other specified disorders of brain; R53.1 Weakness
CPT/HCPCS: 36415; 70450-TC; 70496-TC; 70498-TC; 70551-TC; 71045-TC; 80048-TC; 80061-TC; 80076-TC; 81001; 82962-TC; 84443-TC; 84484-TC; 85025-TC; 85652-TC; 85730-TC; 87081-TC; 92526; 92611-TC; 93307-TC; 93880-TC; 97112-TC; 97116-TC; 97530-TC; C9803; G0378; J1650; J1815; J7050; Q9967

== ENCOUNTER 2023-10-20 11:07 | Inpatient (IN) | payer MEDICARE, OTHER ==
[~2023-10-20] VITALS: Ht 180.3 cm; Wt 86.7 kg
[~2023-10-20 11:07] MED LIST: AMLO-213 PO; ASPI-1169 PO; ATOR40TA PO; BACL5TAB PO; CARV12.52 PO; DULO30CA52 PO; FAMO20TA8 PO; LACO200T2 PO; LEVE100023 PO; LOSA25TA27 PO; ROSU40TA23 PO; SITA1TAB6 PO; SPIR25TA6 PO
[2023-10-20 11:37] LABS: BASOPHILS % (AUTO) 0.4 % (0.0-2.0); EOSINOPHILS % (AUTO) 0.1 % (0.0-6.0); HEMATOCRIT 38 % (39-51); HEMOGLOBIN 12.6 g/dL (13.5-17.5); LYMPHOCYTES # (AUTO) 0.4 K/uL (0.8-4.8); LYMPHOCYTES % (AUTO) 4.5 % (20.0-44.0); MEAN CORPUSCULAR HEMOGLOBIN 29 PG (26.0-33.0); MEAN CORPUSCULAR HGB CONC 33 g/dl (31.0-36.0); MEAN CORPUSCULAR VOLUME 89 fL (80-96); MONOCYTES # (AUTO) 0.7 K/uL (0.1-1.30); MONOCYTES % (AUTO) 7.5 % (2.0-12.0); NEUTROPHILS # (AUTO) 7.9 K/uL (1.8-8.9); NEUTROPHILS % (AUTO) 87.5 % (43.0-81.0); PLATELET COUNT (AUTO) 180 K/uL (150-450); RED CELL DISTRIBUTION WIDTH 13.4 % (11.5-15.0)
[2023-10-20] MEDS ORDERED: IOHEXOL-350 100 ML VIAL IV ONE (11:39)
[2023-10-20] MEDS ORDERED: IV NS 0.9% 250 ML IV ONE (11:40)
[2023-10-20] MEDS ORDERED: CT SWABBABLE VALVE TRANS SET 1 EA INFUS.SET MC ONE (11:40)
[2023-10-20 11:46] LABS: CALCIUM, SERUM 8.8 mg/dL (8.5-10.1); CARBON DIOXIDE 24 mmol/L (21-32); CHLORIDE 95 mmol/L (98-107); CREATININE 1.1 mg/dL (0.6-1.3); GLUCOSE 123 mg/dL (74-106); POTASSIUM 4.1 mmol/L (3.5-5.1); SODIUM SERUM 128 mmol/L (136-145); UREA NITROGEN, BLOOD 19 mg/dL (7-18)
[2023-10-20 11:52] LABS: ALANINE AMINOTRANSFERASE 49 U/L (12-78); ALBUMIN 2.7 g/dL (3.4-5.0); ALKALINE PHOSPHATASE 91 U/L (46-116); ASPARTATE AMINOTRANSFERASE 40 U/L (15-37); BILIRUBIN,DIRECT 0.2 mg/dL (0.0-0.2); BILIRUBIN,TOTAL 0.5 mg/dL (0.2-1.0); TOTAL PROTEIN, SERUM 7.1 g/dL (6.4-8.2)
[2023-10-20] MEDS ORDERED: ASPI-1169 PO (11:54)
[2023-10-20] MEDS ORDERED: ATOR40TA PO (11:54)
[2023-10-20 11:56] LABS: INR 0.96 (0.91-1.10); PARTIAL THROMBOPLASTIN TIME 33.4 SEC (24.3-34.3); PROTHROMBIN TIME 9.9 SECS (9.2-11.1)
[2023-10-20 12:11] LABS: CHOLESTEROL 157 mg/dL (<200); HDL CHOLESTEROL 43 mg/dL (40-60); LDL 87 mg/dL (0-99); TRIGLYCERIDES 97 mg/dL (30-150)
[2023-10-20 13:35] LABS: APPEARANCE,URINE Clear (CLEAR); BILIRUBIN,URINE Negative (NEGATIVE); BLOOD, URINE Moderate Ery/uL (NEGATIVE); COLOR,URINE YELLOW (YELLOW); KETONES,URINE 40 mg/dL (NEGATIVE); LEUKOCYTE ESTERASE ,URINE Trace (NEGATIVE); NITRITE, URINE Positive (NEGATIVE); PROTEIN,URINE 100 mg/dl (NEGATIVE); UGLUCOSE Negative (NEGATIVE); UROBILINOGEN,URINE 0.2 EU/dL (0.2)
[2023-10-20 13:53] LABS: ADD URINE CULTURE YES; BACTERIA,URINE Few /HPF (None Seen); SQUAMOUS EPITHELIAL CELL,UR Rare /HPF (None Seen)
[2023-10-20] MEDS: CEFTRIAXONE 1GM BAG (ER ONLY) 1 GM/50 ML PIGGYBACK IV ONE (15:00)
[2023-10-20] MEDS ORDERED: CEFTRIAXONE 1GM BAG (ER ONLY) 50 ML IV ONE (15:06)
[2023-10-20 17:00] VITALS: BP 159/92; TEMP 98.4; O2SAT 99
[2023-10-20 17:25] VITALS: BP 159/92; TEMP 98.4; O2SAT 99
[2023-10-20] MEDS ORDERED: ACETAMINOPHEN 325 MG TABLET PO PRN (19:30)
[2023-10-20] MEDS ORDERED: ONDANSETRON HCL/PF 4 MG/2 ML VIAL IVP PRN (19:30)
[2023-10-20] MEDS ORDERED: Z GUARD REMEDY 4 OZ OINT TP PRN (19:30)
[2023-10-20 20:00] VITALS: BP 134/73; TEMP 99.5; O2SAT 96
[2023-10-20 20:29] LABS: THYROID STIMULATING HORMONE 1.2 uIU/mL (0.358-3.74)
[2023-10-20] MEDS: LEVETIRACETAM (250 MG) 250 MG TABLET PO SCH (20:55)
[2023-10-20] MEDS: LACOSAMIDE 50 MG TABLET PO SCH (20:56)
[2023-10-20] MEDS: BACLOFEN (10 MG) 10 MG TABLET PO SCH (20:59)
[2023-10-20] MEDS: CYANOCOBALAMIN 1,000 MCG/ML VIAL IM ONE (21:00)
[2023-10-20] MEDS: ENOXAPARIN SODIUM 40 MG/0.4 ML DISP.SYRIN SQ SCH (21:01)
[2023-10-20] MEDS ORDERED: ZOLPIDEM TARTRATE 5 MG TABLET PO PRN (22:30)
[2023-10-20] MEDS: IV NS 0.9% 1,000 ML IV PRN (22:30)
[2023-10-20] MEDS: PHENYTOIN EXTENDED RELEASE 100 MG CAPSULE PO SCH (22:55)
[2023-10-21] VITALS (7 sets, daily range): BP systolic 94–142; BP diastolic 61–86; TEMP 97.9–98.6; O2SAT 94–100
[2023-10-21 06:34] LABS: BASOPHILS % (AUTO) 0.3 % (0.0-2.0); EOSINOPHILS % (AUTO) 0.2 % (0.0-6.0); HEMATOCRIT 38 % (39-51); HEMOGLOBIN 12.5 g/dL (13.5-17.5); LYMPHOCYTES # (AUTO) 0.5 K/uL (0.8-4.8); LYMPHOCYTES % (AUTO) 6.5 % (20.0-44.0); MEAN CORPUSCULAR HEMOGLOBIN 30 PG (26.0-33.0); MEAN CORPUSCULAR HGB CONC 33 g/dl (31.0-36.0); MEAN CORPUSCULAR VOLUME 89 fL (80-96); MONOCYTES # (AUTO) 1.2 K/uL (0.1-1.30); NEUTROPHILS # (AUTO) 6.1 K/uL (1.8-8.9); PLATELET COUNT (AUTO) 179 K/uL (150-450); RED BLOOD CELL COUNT(AUTO) 4.22 MIL/uL (4.5-6.0); RED CELL DISTRIBUTION WIDTH 13.4 % (11.5-15.0); WHITE BLOOD COUNT (AUTO) 7.9 K/uL (4.3-11.0)
[2023-10-21 08:23] LABS: CALCIUM, SERUM 8.8 mg/dL (8.5-10.1); CARBON DIOXIDE 19 mmol/L (21-32); CHLORIDE 99 mmol/L (98-107); CREATININE 0.8 mg/dL (0.6-1.3); GLUCOSE 110 mg/dL (74-106); PHOSPHORUS 3.5 mg/dL (2.5-4.9); POTASSIUM 3.7 mmol/L (3.5-5.1); SODIUM SERUM 134 mmol/L (136-145); UREA NITROGEN, BLOOD 13 mg/dL (7-18)
[2023-10-21] MEDS: ASPIRIN 81 MG TAB.CHEW PO SCH (08:34)
[2023-10-21] MEDS: DULOXETINE HCL 30 MG CAPSULE.DR PO SCH (08:34)
[2023-10-21] MEDS: SPIRONOLACTONE 25 MG TABLET PO SCH (08:35)
[2023-10-21] MEDS: LINAGLIPTIN 5 MG TABLET PO SCH (08:35)
[2023-10-21] MEDS: AMLODIPINE BESYLATE 10 MG TABLET PO SCH (08:35)
[2023-10-21] MEDS: ATORVASTATIN 40 MG TABLET PO SCH (08:35)
[2023-10-21] MEDS: CARVEDILOL 12.5 MG TABLET PO SCH (08:36)
[2023-10-21] MEDS: LOSARTAN POTASSIUM 25 MG TABLET PO SCH (08:36)
[2023-10-21 16:40] LABS: URINE SODIUM, RANDOM 21 mmol/l (40-220)
[2023-10-22 00:53] VITALS: BP 107/72; TEMP 98.2; O2SAT 99
[2023-10-22 04:22] VITALS: BP 144/82; TEMP 98.2; O2SAT 96
[2023-10-22 04:26] VITALS: BP 144/82; TEMP 98.2; O2SAT 96
[2023-10-22 08:24] LABS: CALCIUM, SERUM 9.2 mg/dL (8.5-10.1); CARBON DIOXIDE 20 mmol/L (21-32); CHLORIDE 102 mmol/L (98-107); CREATININE 0.7 mg/dL (0.6-1.3); GLUCOSE 135 mg/dL (74-106); PHOSPHORUS 3.4 mg/dL (2.5-4.9); POTASSIUM 3.9 mmol/L (3.5-5.1); SODIUM SERUM 138 mmol/L (136-145); UREA NITROGEN, BLOOD 14 mg/dL (7-18)
[2023-10-22 08:52] LABS: URIC ACID 6.6 mg/dL (2.6-7.2)
[2023-10-22 09:30] VITALS: BP 133/81; TEMP 98.1; O2SAT 96
[2023-10-22] MEDS ORDERED: PHEN100C4 PO (11:07)
[2023-10-22 12:00] VITALS: BP 104/83; TEMP 97.7; O2SAT 97
[2023-10-22] MEDS ORDERED: METFORMIN 500 MG TABLET PO SCH (17:00)
[2023-10-22 21:45] LABS: OSMOLALITY,URINE 285 mOS/kg (340-1090)
== END 2023-10-22 15:25 | disposition home health service (06) | DRG 74 ==
LOC: ER 11:07 → TELE 13:04 → MED 10-22 14:05
PROVIDERS: ADMIT Nurse Practitioner Acute Care; ATTEND Internal Medicine
DX: E11.40 Type 2 diabetes mellitus with diabetic neuropathy, unspecified (principal); I69.351 Hemiplegia and hemiparesis following cerebral infarction affecting right dominant side; E87.1 Hypo-osmolality and hyponatremia; N17.9 Acute kidney failure, unspecified; I69.320 Aphasia following cerebral infarction; R20.0 Anesthesia of skin; G40.909 Epilepsy, unspecified, not intractable, without status epilepticus; Z20.822 Contact with and (suspected) exposure to COVID-19; Z95.2 Presence of prosthetic heart valve; Z98.890 Other specified postprocedural states; R29.6 Repeated falls; N40.0 Benign prostatic hyperplasia without lower urinary tract symptoms; M89.8X9 Other specified disorders of bone, unspecified site; I25.10 Atherosclerotic heart disease of native coronary artery without angina pectoris; E86.9 Volume depletion, unspecified; Z88.8 Allergy status to other drugs, medicaments and biological substances; Z79.82 Long term (current) use of aspirin; Z79.899 Other long term (current) drug therapy; Z79.84 Long term (current) use of oral hypoglycemic drugs; Z91.81 History of falling; D64.9 Anemia, unspecified; E78.5 Hyperlipidemia, unspecified; I10 Essential (primary) hypertension
CPT/HCPCS: 36415; 70496-TC; 70498-TC; 70551-TC; 71045-TC; 80048-TC; 80061-TC; 80076-TC; 81001; 82607-TC; 83540-TC; 83735-TC; 83935-TC; 84100-TC; 84300-TC; 84443-TC; 84484-TC; 84550-TC; 85025-TC; 85652-TC; 85730-TC; 87040-TC; 87086-TC; 92507-TC; 92521; 92526; 92611-TC; 97110-TC; 97116-TC; 97530-TC; 97535-TC; A4223; G0378; J0696; J1650; J3420; J7030; J7050; Q9967

== ENCOUNTER 2024-05-24 14:39 | Emergency (ER) | payer MEDICARE, OTHER ==
[~2024-05-24] VITALS: Ht 180.3 cm; Wt 81.6 kg
[~2024-05-24 14:39] MED LIST changes: -FAMO20TA8 PO; +PHEN100C4 PO; -ROSU40TA23 PO
[2024-05-24] MEDS ORDERED: LIDOCAINE 1%-EPI 1:100,000 20 ML VIAL ONE (15:21)
[2024-05-24] MEDS ORDERED: TDAP [DIPH/PERTUSSIS/TET] 0.5 ML VIAL IM ONE (15:35)
[2024-05-24] MEDS: TDAP [DIPH/PERTUSSIS/TET] 0.5 ML VIAL IM ONE (15:38)
[2024-05-24] MEDS: LIDOCAINE 1%-EPI 1:100,000 20 ML VIAL TP ONE (17:30)
[2024-05-24 18:21] VITALS: BP 150/80; TEMP 98.2; O2SAT 98
== END 2024-05-24 18:21 | disposition home or self-care (01) ==
LOC: ER 14:39
DX: S01.81XA Laceration without foreign body of other part of head, initial encounter (principal); S61.411A Laceration without foreign body of right hand, initial encounter; S01.21XA Laceration without foreign body of nose, initial encounter; S80.02XA Contusion of left knee, initial encounter; E11.9 Type 2 diabetes mellitus without complications; I10 Essential (primary) hypertension; Z79.82 Long term (current) use of aspirin; Z79.84 Long term (current) use of oral hypoglycemic drugs; Z79.899 Other long term (current) drug therapy; W01.0XXA Fall on same level from slipping, tripping and stumbling without subsequent striking against object, initial encounter; Y93.89 Activity, other specified; Y92.89 Other specified places as the place of occurrence of the external cause; Y99.8 Other external cause status
CPT/HCPCS: 99284; 72125; 12011; 90471; 90715; 73130; 73564; 70450; 70486; 73110; A6403 ×2; J3490

== ENCOUNTER 2024-05-31 14:29 | Emergency (ER) | payer MEDICARE, OTHER ==
[~2024-05-31] VITALS: Ht 180.3 cm; Wt 81.6 kg
[2024-05-31 15:13] VITALS: BP 124/69; TEMP 98.3
[2024-05-31 16:14] VITALS: O2SAT 99
== END 2024-05-31 16:15 | disposition home or self-care (01) ==
LOC: ER 14:36
DX: S01.81XD Laceration without foreign body of other part of head, subsequent encounter (principal); E11.9 Type 2 diabetes mellitus without complications; I10 Essential (primary) hypertension; Z48.02 Encounter for removal of sutures; Z79.82 Long term (current) use of aspirin; Z79.84 Long term (current) use of oral hypoglycemic drugs; Z79.899 Other long term (current) drug therapy; Z86.73 Personal history of transient ischemic attack (TIA), and cerebral infarction without residual deficits; Z95.2 Presence of prosthetic heart valve; Z60.2 Problems related to living alone; X58.XXXD Exposure to other specified factors, subsequent encounter

== ENCOUNTER 2025-02-10 23:03 | Emergency (ER) | payer MEDICARE, OTHER ==
[~2025-02-10] VITALS: Ht 162.6 cm; Wt 79.4 kg
[2025-02-10] MEDS ORDERED: TDAP [DIPH/PERTUSSIS/TET] 0.5 ML VIAL IM ONE (23:26)
[2025-02-10] MEDS ORDERED: GELATIN SPONGE,ABSORBABLE 1 SPONGE SPONGE TP ONE (23:30)
[2025-02-10] MEDS: TDAP [DIPH/PERTUSSIS/TET] 0.5 ML VIAL IM ONE (23:30)
[2025-02-10] MEDS: GELATIN SPONGE,ABSORBABLE 1 SPONGE SPONGE TP ONE (23:55)
[2025-02-10 23:59] VITALS: BP 128/78; TEMP 98; O2SAT 96
== END 2025-02-10 23:59 | disposition home or self-care (01) ==
LOC: ER 23:26
DX: S61.217A Laceration without foreign body of left little finger without damage to nail, initial encounter (principal); I11.9 Hypertensive heart disease without heart failure; E11.9 Type 2 diabetes mellitus without complications; Z79.82 Long term (current) use of aspirin; Z79.84 Long term (current) use of oral hypoglycemic drugs; Z79.899 Other long term (current) drug therapy; Z95.2 Presence of prosthetic heart valve; W27.4XXA Contact with kitchen utensil, initial encounter; Y93.89 Activity, other specified; Y92.89 Other specified places as the place of occurrence of the external cause; Y99.9 Unspecified external cause status
CPT/HCPCS: 90715